=== PATIENT | female | born 1965 | race Two or more races ===

== ENCOUNTER 2023-01-21 05:22 | Inpatient (IN) | payer MEDICAID ==
[~2023-01-21] VITALS: Ht 149.9 cm; Wt 66.9 kg
--- NOTE | 2023-01-21 10:20 | NUR ---
ADMISSION RN NOTES ADMITTED A 58 Y/O FEMALE TO THE UNIT AT 1000 VIA GURNEY ACCOMPANIED BY 2 RETAIL STORE CLERK. PT IS DIRECT ADMIT FROM [place] WITH DX OF CHF. PATIENT IS ALERT AND ORIENTED X4, GREEK SPEAKING. SPEECH COACH AVAILABLE NEEDED. PT ABLE TO MAKE NEEDS KNOWN. PT ORIENTED TO STAFF AND UNIT. V/S TAKEN AND RECORDED. PT ON O2 AT 2L/MIN VIA NASAL CANNULA, TOLERATING WELL WITH SPO2 AT 98%. NO SOB NOTED AT THIS TIME. NOT IN ANY SIGN OF RESPIRATORY DISTRESS. TELE SHOTWELD OPERATOR WAS PLACED ON THE PT WITH CURRENT READING OF SINUS RHYTHM, HR 86. NO C/O OF CARDIAC DISTRESS VOICED OUT AT THIS TIME. ABDOMEN SOFT AND NON-TENDER. PT C/O LEFT SIDE BODY PAIN WITH PAIN SCALE LEVEL OF 7/10 AND REQUESTED FOR PAIN MEDICATION. PT NOTED WITH NO SIGNS OF FACIAL DROOPING. PT ABLE TO SWALLOW WATER WELL. PT DENIES CHEST PAIN. SKIN IS INTACT, DRY, AND WARM. PHOTOGRAPHS OF SKIN ISSUES TAKEN AND FILED IN THE CHART. IV ACCESS IN RAC G #20 INTACT AND PATENT. SAFETY MEASURES INITIATED: BED IN LOWEST AND LOCKED POSITION, SIDE RAILS UP X2, AND CALL LIGHT WITHIN REACH. CALLED DR. LAXMI CHRIS AND LEFT A MESSAGE IN REGARDS TO PT'S PAIN. AWAITING FOR A CALL BACK. WILL CONTINUE TO MONITOR PT.
[2023-01-21] MEDS ORDERED: Z GUARD REMEDY 4 OZ OINT TP PRN (10:30)
[2023-01-21] MEDS ORDERED: ACETAMINOPHEN 325 MG TABLET PO PRN (10:30)
[2023-01-21] MEDS ORDERED: ONDANSETRON HCL/PF 4 MG/2 ML VIAL IVP PRN (10:30)
[2023-01-21] MEDS ORDERED: DEXTROSE 50%-WATER 50 ML DISP.SYRIN IV PRN (10:30)
[2023-01-21] MEDS: HYDROCODONE/APAP 5/325MG TABLET PO PRN ×3 (10:43→23:23)
--- NOTE | 2023-01-21 10:45 | NUR ---
RN NOTE PT C/O LEFT SIDE BODY PAIN WITH PAIN SCALE LEVEL OF 7/10 AND REQUESTED FOR PAIN MEDICATION. PT NOTED WITH NO SIGNS OF FACIAL DROOPING. PT ABLE TO SWALLOW WATER WELL. PT DENIES CHEST PAIN. NORCO 5/325MG 1 TAB PO ADMINISTERED ORDERED Q4HR PRN FOR PAIN. WILL MONITOR AND REASSESS PT.
[2023-01-21 11:00] VITALS: BP 155/76
[2023-01-21 11:16] LABS: BASOPHILS # (AUTO) 0.1 K/uL (0.0-0.2); BASOPHILS % (AUTO) 0.8 % (0.0-2.0); EOSINOPHILS % (AUTO) 2.4 % (0.0-6.0); HEMATOCRIT 27 % (33-45); HEMOGLOBIN 8.7 g/dL (11.5-14.8); LYMPHOCYTES # (AUTO) 0.7 K/uL (0.8-4.8); MEAN CORPUSCULAR HGB CONC 33 g/dl (31.0-36.0); MEAN CORPUSCULAR VOLUME 90 fL (82-100); MONOCYTES # (AUTO) 0.8 K/uL (0.1-1.30); MONOCYTES % (AUTO) 12.2 % (2.0-12.0); NEUTROPHILS # (AUTO) 5.2 K/uL (1.8-8.9); NEUTROPHILS % (AUTO) 74.6 % (43.0-81.0); PLATELET COUNT (AUTO) 209 K/uL (150-450); RED BLOOD CELL COUNT(AUTO) 2.96 MIL/uL (4.0-5.2); WHITE BLOOD COUNT (AUTO) 6.9 K/uL (4.3-11.0)
[2023-01-21 11:44] LABS: CALCIUM, SERUM 8.9 mg/dL (8.5-10.1); CARBON DIOXIDE 18 mmol/L (21-32); CHLORIDE 108 mmol/L (98-107); CREATININE 3.9 mg/dL (0.6-1.3); GLUCOSE 110 mg/dL (74-106); POTASSIUM 4.9 mmol/L (3.5-5.1); SODIUM SERUM 140 mmol/L (136-145); UREA NITROGEN, BLOOD 51 mg/dL (7-18)
[2023-01-21 11:49] LABS: ALANINE AMINOTRANSFERASE 18 U/L (12-78); ALBUMIN 3.3 g/dL (3.4-5.0); ALKALINE PHOSPHATASE 97 U/L (46-116); ASPARTATE AMINOTRANSFERASE 16 U/L (15-37); BILIRUBIN,TOTAL 0.5 mg/dL (0.2-1.0); MAGNESIUM 2.6 mg/dL (1.8-2.4); PHOSPHORUS 5.6 mg/dL (2.5-4.9)
[2023-01-21 12:00] VITALS: BP 153/74
[2023-01-21] MEDS: BLOOD SUGAR DIAGNOSTIC 1 EACH STRIP IN SCH ×3 (12:16→21:17)
[2023-01-21] MEDS: INSULIN REGULAR, HUMAN 100 UNIT/ML 3 ML VIAL SQ PRN ×2 (12:17→16:54)
[2023-01-21] MEDS ORDERED: CLON0.1T PO (15:30)
[2023-01-21] MEDS ORDERED: AMLO10TA4 PO (15:30)
[2023-01-21] MEDS ORDERED: FURO40TA5 PO (15:30)
[2023-01-21] MEDS ORDERED: PANT40TA2 PO (15:30)
[2023-01-21] MEDS ORDERED: CLOP75TA15 PO (15:30)
[2023-01-21 15:34] LABS: THYROID STIMULATING HORMONE 1.857 uIU/mL (0.358-3.74)
[2023-01-21] MEDS ORDERED: HYDR100T27 PO (15:41)
[2023-01-21] MEDS ORDERED: SITA50TA PO (15:41)
[2023-01-21] MEDS ORDERED: BUME1TAB8 PO (15:41)
[2023-01-21] MEDS ORDERED: CARV6.252 PO (15:41)
[2023-01-21] MEDS ORDERED: ASPI-1420 PO (15:41)
[2023-01-21] MEDS ORDERED: SEVE800T8 PO (15:47)
[2023-01-21] MEDS ORDERED: CLON0.3P TD (15:47)
[2023-01-21] MEDS ORDERED: ATOR40TA PO (15:47)
[2023-01-21 16:08] VITALS: BP 150/80
--- NOTE | 2023-01-21 18:47 | NUR ---
RN NOTE PT C/O LEFT SIDE BODY PAIN WITH PAIN SCALE LEVEL OF 7/10 AND REQUESTED FOR PAIN MEDICATION. PT REMAINS WITH NO SIGNS OF FACIAL DROOPING. PT STILL ABLE TO SWALLOW WATER WELL. PT DENIES CHEST PAIN. NORCO 5/325MG 1 TAB PO ADMINISTERED ORDERED Q4HR PRN FOR PAIN. WILL MONITOR AND REASSESS PT.
[2023-01-21] MEDS ORDERED: BUMETANIDE INJ 8 MG in IV NS 0.9% 48 ML IV ONE (19:00)
[2023-01-21] MEDS ORDERED: hydrALAZINE HCL IV 20 MG VIAL IV PRN (19:00)
--- NOTE | 2023-01-21 19:04 | NUR ---
GROUND CREWMAN CLOSING NOTES PT AWAKE AND RESTING IN BED. PATIENT IS ALERT AND ORIENTED X4, RUSSIAN SPEAKING. PT ON O2 AT 2L/MIN VIA NASAL CANNULA, TOLERATING WELL. NO SOB NOTED AT THIS TIME. NOT IN ANY SIGN OF RESPIRATORY DISTRESS. ON TELE PUBLIC HEALTH REPRESENTATIVE WITH CURRENT READING OF SINUS RHYTHM, HR 90. NO C/O OF CARDIAC DISTRESS VOICED OUT AT THIS TIME. IV ACCESS IN RAC G #20 INTACT AND PATENT. FOLLOWED UP BUMEX IV MEDICATIONS AT PHARMACY PER PHARMACIST THEY ARE MIXING THE MEDICATION AT THIS TIME. WILL ENDORSED TO PACU NURSE NURSE TO ADMINISTER WHEN AVAILABLE. ALL NEEDS ATTENDED. KEPT CLEAN AND COMFORTABLE AT ALL TIMES. SAFETY MEASURES IN PLACE: BED IN LOWEST AND LOCKED POSITION, SIDE RAILS UP X2, AND CALL LIGHT WITHIN REACH. WILL ENDORSE TO PACU NURSE NURSE FOR IRA.
--- NOTE | 2023-01-21 19:40 | NUR ---
PHYSICAL SCIENCE PROFESSOR OPENING NOTE PT AWAKE AND RESTING IN BED. PATIENT IS ALERT AND ORIENTED X4, SYRIAC SPEAKING. ON O2 AT 2L/MIN VIA NASAL CANNULA, TOLERATING WELL. NO SOB, NO RESPIRATORY DISTRESS NOTED AT THIS TIME. ON TELE UNDERWRITING SUPPORT MANAGER WITH CURRENT READING OF SINUS RHYTHM. IV ACCESS TO RIGHT AC G #20, INTACT AND PATENT. SAFETY MEASURES IN PLACE: BED IN LOWEST AND LOCKED POSITION, SIDE RAILS UP X2, AND CALL LIGHT WITHIN REACH. WILL CONTINUE TO MONITOR PT.
[2023-01-21] MEDS: HEPARIN SODIUM, PORCINE 5000 UNITS/1 ML VIAL SQ SCH (21:15)
[2023-01-21 21:57] VITALS: BP 183/99
--- NOTE | 2023-01-21 23:23 | NUR ---
DINKEY MOTOR OPERATOR NOTE PT REPORT PAIN TO LEFT ARM, AND LEFT LEG. PAIN MED NORCO ADMINISTERED TO PT.
[2023-01-22] VITALS: BP 156/96
[2023-01-22] MEDS: INSULIN REGULAR, HUMAN 100 UNIT/ML 3 ML VIAL SQ PRN ×3 (00:07→12:14)
[2023-01-22 04:00] VITALS: BP 186/97
[2023-01-22 05:41] LABS: BASOPHILS % (AUTO) 0.9 % (0.0-2.0); EOSINOPHILS % (AUTO) 5.7 % (0.0-6.0); HEMATOCRIT 26 % (33-45); HEMOGLOBIN 8.4 g/dL (11.5-14.8); LYMPHOCYTES # (AUTO) 1.1 K/uL (0.8-4.8); LYMPHOCYTES % (AUTO) 21.5 % (20.0-44.0); MEAN CORPUSCULAR HGB CONC 33 g/dl (31.0-36.0); MEAN CORPUSCULAR VOLUME 90 fL (82-100); MONOCYTES # (AUTO) 0.9 K/uL (0.1-1.30); MONOCYTES % (AUTO) 16.1 % (2.0-12.0); NEUTROPHILS % (AUTO) 55.8 % (43.0-81.0); PLATELET COUNT (AUTO) 195 K/uL (150-450); RED BLOOD CELL COUNT(AUTO) 2.85 MIL/uL (4.0-5.2); WHITE BLOOD COUNT (AUTO) 5.3 K/uL (4.3-11.0)
--- NOTE | 2023-01-22 05:48 | NUR ---
NUCLEAR SUPERVISING OPERATOR NOTE PT HAS HIGH BP, BP: 186/97. HYDRALAZINE ADMINISTERED TO PT.
[2023-01-22 05:59] LABS: CALCIUM, SERUM 8.7 mg/dL (8.5-10.1); CREATININE 3.9 mg/dL (0.6-1.3); MAGNESIUM 2.4 mg/dL (1.8-2.4); PHOSPHORUS 5.2 mg/dL (2.5-4.9); POTASSIUM 4.3 mmol/L (3.5-5.1)
[2023-01-22] MEDS: BLOOD SUGAR DIAGNOSTIC 1 EACH STRIP IN SCH ×4 (06:14→21:54)
[2023-01-22] MEDS: HYDROCODONE/APAP 5/325MG TABLET PO PRN ×3 (06:15→19:44)
--- NOTE | 2023-01-22 06:15 | NUR ---
UNDERCUTTER OPERATOR NOTE PT COMPLAINTS OF PAIN TO LEFT SIDE OF BODY. RECEIVED NORCO FOR PAIN.
--- NOTE | 2023-01-22 06:39 | NUR ---
WAITER/WAITRESS ROOM SERVICE CLOSING NOTE LEFT PT AWAKE, AND RESTING IN BED. PATIENT IS ALERT AND ORIENTED X4, ESTONIAN SPEAKING. ON O2 AT 2L/MIN VIA NASAL CANNULA, TOLERATING WELL. NO SOB, NO RESPIRATORY DISTRESS NOTED AT THIS TIME. ON TELE DIRECTOR OF STUDENT LIFE WITH CURRENT READING OF SINUS RHYTHM. IV ACCESS TO RIGHT AC G #20, INTACT AND PATENT. ALL MEDS GIVEN ON TIMELY MANNER. ALL NEEDS ATTENDED. SAFETY MEASURES IN PLACE: BED IN LOWEST AND LOCKED POSITION, SIDE RAILS UP X2, AND CALL LIGHT WITHIN REACH. WILL ENDORSE PT TO MORNING SHIFT NURSE FOR IRA.
--- NOTE | 2023-01-22 07:03 | NUR ---
DECKHAND CRAB BOAT OPENING NOTES RECEIVED PATIENT SLEEPING IN BED, A/Ox4, ICELANDIC SPEAKING, ABLE TO MAKE NEEDS KNOWN. ON 2L OF O2 VIA NC, NO S/S OF RESPIRATORY DISTRESS. ON TELE MONITORING SHOWING SINUS RHYTHM HR 86, NO C/O OF CHEST PAIN OR DISCOMFORT. IV ACCESS R AC #20 S/L. INTACT AND PATENT. PATIENT ON BED REST, INCONTINENT, HAS L SIDED WEAKNESS. SKIN ISSUES: SACRAL REDNESS. NO S/S OF PAIN OR DISCOMFORT NOTED. SAFETY MEASURES IN PLACE: BED LOCKED AND IN LOWEST POSITION, HOB ELEVATED, CALL LIGHT WITHIN REACH, SIDE RAILS UPx2. WILL CONTINUE TO MONITOR.
[2023-01-22 08:00] VITALS: BP 178/82
[2023-01-22] MEDS: SEVELAMER CARBONATE 800 MG TABLET PO SCH ×3 (08:06→17:45)
[2023-01-22] MEDS: PANTOPRAZOLE 40 MG TABLET.DR PO SCH (08:06)
[2023-01-22] MEDS: LINAGLIPTIN 5 MG TABLET PO SCH (08:12)
[2023-01-22] MEDS: CLOPIDOGREL BISULFATE 75 MG TABLET PO SCH (08:12)
[2023-01-22] MEDS: ASPIRIN EC 81 MG TABLET.DR PO SCH (08:12)
[2023-01-22] MEDS: AMLODIPINE BESYLATE 10 MG TABLET PO SCH (08:13)
[2023-01-22] MEDS: HEPARIN SODIUM, PORCINE 5000 UNITS/1 ML VIAL SQ SCH ×2 (08:21→20:50)
[2023-01-22] MEDS ORDERED: hydrALAZINE HCL 50 MG TABLET PO SCH ×2 (09:00→09:30)
[2023-01-22] MEDS ORDERED: CARVEDILOL 6.25 MG TABLET PO SCH (09:00)
[2023-01-22] MEDS ORDERED: ATORVASTATIN 40 MG TABLET PO SCH ×2 (09:30→18:00)
[2023-01-22] MEDS ORDERED: CARVEDILOL 12.5 MG TABLET PO SCH (09:30)
[2023-01-22] MEDS ORDERED: CARVEDILOL 6.25 MG TABLET PO ONE (10:30)
[2023-01-22] MEDS: FUROSEMIDE 100 MG/10 ML VIAL IV SCH ×3 (10:36→17:48)
[2023-01-22] MEDS: METOLAZONE 2.5 MG TABLET PO SCH (10:36)
[2023-01-22] MEDS: ISOSORBIDE DINITRATE (20MG) 20 MG TABLET PO SCH ×2 (10:37→17:44)
[2023-01-22 12:00] VITALS: BP 149/67
--- NOTE | 2023-01-22 12:49 | NUR ---
RN NOTES PATIENT BLOOD PRESSURE CONTINUES TO BE HIGH. DR. ANTHONY AWARE, HAS ORDERED BP CONTROL MEDICATION. WILL CONTINUE TO MONITOR.
[2023-01-22] MEDS: hydrALAZINE HCL 50 MG TABLET PO SCH ×2 (12:56→17:44)
--- NOTE | 2023-01-22 13:38 | NUR ---
RN NOTES PATIENT COMPLAINED OF PAIN 8/10 OF L SIDE. PRN NARCO ADMINISTERED. WILL CONTINUE TO MONITOR.
--- NOTE | 2023-01-22 15:13 | NUR ---
Kidney exam was done yesterday , 01/21/2023. GOYO Hanson message the ordering not answer yet
[2023-01-22 16:00] VITALS: BP 161/80
--- NOTE | 2023-01-22 17:25 | NUR ---
ADMISSION RN NOTES ADMITTED A 30 Y/O MALE TO THE UNIT AT 1715 VIA GURNEY ACCOMPANIED BY 2 ER STAFF NURSES WITH DX OF LEFT TIBIAL FRACTURE. PATIENT IS ALERT AND ORIENTED X4, ABLE TO MAKE NEEDS KNOWN. PT ORIENTED TO STAFF AND UNIT. V/S TAKEN AND RECORDED. PT ON ROOM AIR, TOLERATING WELL WITH SPO2 AT 98%. NO SOB NOTED AT THIS TIME. NOT IN ANY SIGN OF RESPIRATORY DISTRESS. LUNG SOUNDS CLEAR BILATERALLY ON AUSCULTATION. ABDOMEN SOFT AND NON-TENDER. PT C/O LEFT LOWER LEG PAIN WITH PAIN SCALE LEVEL OF 10/10 DUE TO FRACTURE AND REQUESTED FOR PAIN MEDICATION. SKIN IS INTACT, DRY, AND WARM. NO SKIN ISSUES NOTED. LEFT LEG NOTED WITH GREYSON WRAPPED. IV ACCESS IN LAC G #18 INTACT AND PATENT WITH NS STARTED INFUSING AT 75ML/HR. SAFETY MEASURES INITIATED: BED IN LOWEST AND LOCKED POSITION, SIDE RAILS UP X2, AND CALL LIGHT WITHIN REACH. CALLED DR. EDEL NORWOOD AND LEFT A MESSAGE IN REGARDS TO PT'S PAIN. AWAITING FOR A CALL BACK. WILL CONTINUE TO MONITOR PT. Addendum: 01/22/23 at 1822 by DENA MCLAIN RN DELETE ENTRY WRONG PT.
--- NOTE | 2023-01-22 18:48 | NUR ---
INTERLOCKING MACHINE OPERATOR CLOSING NOTES PATIENT SLEEPING IN BED, A/Ox4, IRISH SPEAKING, ABLE TO MAKE NEEDS KNOWN. STABLE ON 2L OF O2 VIA NC, NO S/S OF RESPIRATORY DISTRESS. ON TELE MONITORING SHOWING SINUS RHYTHM HR 79, NO C/O OF CHEST PAIN OR DISCOMFORT. IV ACCESS R AC #20 S/L. INTACT AND PATENT. PATIENT ON BED REST, INCONTINENT, HAS L SIDED WEAKNESS. HAS [place] DRAINING 3000 ML. SKIN ISSUES: SACRAL REDNESS. NO S/S OF PAIN OR DISCOMFORT NOTED. SAFETY MEASURES MAINTAINED: BED LOCKED AND IN LOWEST POSITION, HOB ELEVATED, CALL LIGHT WITHIN REACH, SIDE RAILS UPx2. WILL ENDORSE TO NEXT SHIFT ANY IRA.
--- NOTE | 2023-01-22 19:00 | NUR ---
STUDENT AFFAIRS VICE PRESIDENT OPENING NOTE PATIENT IS RESTING IN BED. SHE IS ALERT AND ORIENTED, AO X 4. PT IS CZECH SPEAKING, BUT SHE UNDERSTANDS SIMPLE BELARUSIAN. SHE IS ON 2 LPM OXYGEN, TOLERATED WELL. NO S/S OF SOB OR DISTRESS. IV ACCESS IS AT HER R AC, #20, SL. FLUSHED WELL WITH 10 CC NS, IV SITE IS PATENT AND INTACT. PT IS ON EXTERNAL HARD ROCK MINER, ON THE MONITOR, HER HEART RHYTHM IS SR WITH HR OF 80S. SAFETY MEASURES ARE IN PLACED: BED IN LOWEST AND LOCKED POSITION, SIDE RAILS UP X 2; CALL LIGHT AND TABLE ARE WITHIN REACH. WILL CONTINUE MONITORING THE PT AND PROVIDE THE CARE PT NEEDS.
--- NOTE | 2023-01-22 19:45 | NUR ---
TRAVEL RN NOTE PT REPORTS SHE IS HAVING PAIN AT HER LEFT ARM. 6/10 ON PAIN SCALE. PRN MEDICATION, NORCO, GIVEN PER MD ORDER.
[2023-01-22 20:36] VITALS: BP 152/80
[2023-01-22] MEDS: CARVEDILOL 12.5 MG TABLET PO SCH (20:48)
[2023-01-23 00:19] VITALS: BP 140/70
[2023-01-23 04:40] VITALS: BP 144/71
--- NOTE | 2023-01-23 07:03 | NUR ---
GUITAR TECHNICIAN CLOSING NOTE PATIENT IS SLEEPING IN BED, EASILY BEING AROUSED. SHE IS ALERT AND ORIENTED, AO X 4. SHE IS ON 2 LPM OXYGEN, TOLERATED WELL. NO S/S OF SOB OR DISTRESS. IV ACCESS IS AT HER R AC, #20G, SL. IV SITE IS PATENT AND INTACT. PT IS ON EXTERNAL UNIT ASSEMBLER, ON THE MONITOR, HER HEART RHYTHM IS SR WITH HR OF 80S. SAFETY MEASURES ARE IN PLACED: BED IN LOWEST AND LOCKED POSITION, SIDE RAILS UP X 2; CALL LIGHT AND TABLE ARE WITHIN REACH. BED ALARM IS SET. WILL ENDORSE NEXT SHIFT NURSE FOR CONTINUING CARE.
[2023-01-23] MEDS: BLOOD SUGAR DIAGNOSTIC 1 EACH STRIP IN SCH ×2 (07:06→11:54)
[2023-01-23 07:28] LABS: BILIRUBIN,TOTAL 0.4 mg/dL (0.2-1.0); CREATININE 4.1 mg/dL (0.6-1.3); MAGNESIUM 2.4 mg/dL (1.8-2.4); POTASSIUM 3.7 mmol/L (3.5-5.1); TOTAL PROTEIN, SERUM 6.6 g/dL (6.4-8.2)
[2023-01-23 07:41] LABS: BASOPHILS % (AUTO) 0.8 % (0.0-2.0); HEMATOCRIT 24 % (33-45); HEMOGLOBIN 8.2 g/dL (11.5-14.8); LYMPHOCYTES % (AUTO) 20.5 % (20.0-44.0); MEAN CORPUSCULAR HGB CONC 34 g/dl (31.0-36.0); MEAN CORPUSCULAR VOLUME 87 fL (82-100); MONOCYTES # (AUTO) 0.9 K/uL (0.1-1.30); MONOCYTES % (AUTO) 17.8 % (2.0-12.0); NEUTROPHILS # (AUTO) 2.7 K/uL (1.8-8.9); NEUTROPHILS % (AUTO) 54.9 % (43.0-81.0); PLATELET COUNT (AUTO) 223 K/uL (150-450); RED BLOOD CELL COUNT(AUTO) 2.78 MIL/uL (4.0-5.2); WHITE BLOOD COUNT (AUTO) 4.9 K/uL (4.3-11.0)
--- NOTE | 2023-01-23 07:45 | NUR ---
AEROSPACE MECHANIC OPENING NOTE PATIENT IS RESTING IN BED. SHE IS ALERT AND ORIENTED, AO X 4. PT IS MOLDOVAN SPEAKING, BUT SHE UNDERSTANDS SIMPLE TURKISH. SHE IS ON 2 LPM OXYGEN VIA NC, TOLERATED WELL. NO S/S OF SOB OR DISTRESS. IV ACCESS IS AT HER R AC #20, SL. IV SITE IS PATENT AND INTACT. PT IS ON EXTERNAL MECHANICAL OPERATOR, READING SR WITH HR OF 77. SAFETY MEASURES ARE IN PLACED: BED IN LOWEST AND LOCKED POSITION, SIDE RAILS UPX2; CALL LIGHT AND TABLE ARE WITHIN REACH. WILL CONTINUE MONITORING.
[2023-01-23 08:00] VITALS: BP 143/74
[2023-01-23] MEDS: ISOSORBIDE DINITRATE (20MG) 20 MG TABLET PO SCH ×2 (08:10→16:17)
[2023-01-23] MEDS: CARVEDILOL 12.5 MG TABLET PO SCH (08:11)
[2023-01-23] MEDS: CLOPIDOGREL BISULFATE 75 MG TABLET PO SCH (08:11)
[2023-01-23] MEDS: PANTOPRAZOLE 40 MG TABLET.DR PO SCH (08:12)
[2023-01-23] MEDS: METOLAZONE 2.5 MG TABLET PO SCH (08:12)
[2023-01-23] MEDS: SEVELAMER CARBONATE 800 MG TABLET PO SCH ×2 (08:12→12:28)
[2023-01-23] MEDS: LINAGLIPTIN 5 MG TABLET PO SCH (08:13)
[2023-01-23] MEDS: ASPIRIN EC 81 MG TABLET.DR PO SCH (08:13)
[2023-01-23] MEDS: hydrALAZINE HCL 50 MG TABLET PO SCH ×3 (08:13→16:17)
[2023-01-23] MEDS: AMLODIPINE BESYLATE 10 MG TABLET PO SCH (08:13)
[2023-01-23] MEDS: HEPARIN SODIUM, PORCINE 5000 UNITS/1 ML VIAL SQ SCH (08:15)
[2023-01-23 11:57] LABS: BAND % (MANUAL) 4 % (0.0-5.0); EOSINOPHILS % (MANUAL) 7 % (0-4); LYMPHOCYTES % (MANUAL) 20 % (16-48); MONOCYTES % (MANUAL) 15 % (0-11.0); NEUTROPHILS % (MANUAL) 54 (42-76)
[2023-01-23] MEDS: HYDROCODONE/APAP 5/325MG TABLET PO PRN (13:15)
--- NOTE | 2023-01-23 13:15 | NUR ---
ASSISTANT WOMEN'S BASKETBALL COACH NOTE PT REPORTS SHE IS HAVING GENERALIZED PAIN MOSTLY AT HER LEFT SIDE. PRN MEDICATION, NORCO, GIVEN PER MD ORDER. WILL CONTINUE TO MONITOR HER.
[2023-01-23] MEDS ORDERED: BUME1TAB8 PO (14:19)
[2023-01-23] MEDS ORDERED: FURO40TA5 PO (14:19)
[2023-01-23] MEDS ORDERED: ROSU20TA2 PO (14:19)
[2023-01-23] MEDS ORDERED: ISOS20TA8 PO (14:19)
[2023-01-23] MEDS ORDERED: CARV12.52 PO (14:19)
[2023-01-23] MEDS ORDERED: HYDR-4077 PO (14:19)
[2023-01-23 15:58] VITALS: BP 103/68
[2023-01-23 16:17] VITALS: BP 163/68
--- NOTE | 2023-01-23 16:17 | NUR ---
SS NOTE: Pt.'s daughter, Hernan tel: [phone] requested to speak to SW. Hernan states she wanted information regarding advanced healthcare directive for the pt. who is her mother. The pt. has Hx. of cva, type 2 diabetes, CKD, respiratory failure on home O2, CHF, Parkinson's disease. SW met with pt. at bedside. The pt. is alert & oriented x 4 and makes good eye contact. The pt. had soft speech and normal thought process. The pt. denies SI/HI and denies hallucinations. SW provided psychoeducation on advanced directives. Pt. and daughter expressed understanding. SW also provided them with number for mobile notary. They will review the advanced directive together and fill it out if they are agreeable.
--- NOTE | 2023-01-23 16:20 | NUR ---
SHOE REPAIR COBBLER NOTE PT REPORTS SHE IS HAVING HEADACHE. PRN MEDICATION, TYLENOL, GIVEN PER MD ORDER. WILL CONTINUE TO MONITOR HER.
--- NOTE | 2023-01-23 17:40 | NUR ---
RECREATIONAL ASSISTANT NOTE PATIENT DISCHARGE IN STABLE MEDICAL CONDITION. A/OX4. VS TAKEN, STABLE AND RECORDED. NO IV ACCESS. NAME ARM BAND REMOVED. EXTERNAL ELASTIC ASSEMBLER REMOVED AND RETURNED TO TELE DESK. SKIN ASSESSMENT DONE. ALL BELONGINGS CHECKED AND BELONGING LIST SIGNED. HEALTH TEACHING AND DISCHARGE INSTRUCTION GIVEN AND VERBALIZED UNDERSTANDING. INSTRUCTED PT TO MAKE AN APPOINTMENT WITH HER PRIMARY DOCTOR. INSTRUCTED PATIENT IN CASE OF EMERGENCY TO CALL 911 OR GO TO THE NEAREST ER. PATIENT LEFT UNIT WITH FAMILY MEMBER PRIVATE CAR. ACCOMPANIED BY PELT DROPPER. CHARGE NURSE AWARE OF DISCHARGE.
== END 2023-01-23 17:45 | disposition home health service (06) | DRG 194 ==
LOC: TELE 10:10 → MED 01-23 10:58
PROVIDERS: ADMIT Nurse Practitioner Family; ATTEND Nurse Practitioner Family
DX: I13.2 Hypertensive heart and chronic kidney disease with heart failure and with stage 5 chronic kidney disease, or end stage renal disease (principal); N17.0 Acute kidney failure with tubular necrosis; N18.5 Chronic kidney disease, stage 5; Z20.822 Contact with and (suspected) exposure to COVID-19; I69.354 Hemiplegia and hemiparesis following cerebral infarction affecting left non-dominant side; E11.22 Type 2 diabetes mellitus with diabetic chronic kidney disease; Z99.81 Dependence on supplemental oxygen; G20 Parkinson's disease; Z91.199 Patient's noncompliance with other medical treatment and regimen due to unspecified reason; D63.8 Anemia in other chronic diseases classified elsewhere; E78.5 Hyperlipidemia, unspecified; G89.29 Other chronic pain; J96.10 Chronic respiratory failure, unspecified whether with hypoxia or hypercapnia; N28.1 Cyst of kidney, acquired; I50.43 Acute on chronic combined systolic (congestive) and diastolic (congestive) heart failure; Z79.82 Long term (current) use of aspirin; Z79.84 Long term (current) use of oral hypoglycemic drugs; Z79.02 Long term (current) use of antithrombotics/antiplatelets; Z79.899 Other long term (current) drug therapy
CPT/HCPCS: 36415; 71045-TC; 76770-TC; 80048-TC; 80053-TC; 80061-TC; 82607-TC; 82728-TC; 82962-TC; 83540-TC; 83735-TC; 84100-TC; 84443-TC; 84484-TC; 85025-TC; 87081-TC; 93307-TC; 93971-TC; 97110-TC; 97116-TC; 97530-TC; A4223; G0378; J0360; J1644; J1815; J1940; J2405; J3490; J7050